=== PATIENT | female | born 1960 | race African-American/Black ===

== ENCOUNTER 2017-07-07 16:52 | Inpatient (IN) ==
[2017-07-07] MEDS ORDERED: ONDANSETRON 4 MG/2 ML VIAL IV STA (19:21)
[2017-07-07] MEDS ORDERED: methylPREDNISolone SOD SUC 125 MG/2 ML VIAL IV STA (19:21)
[2017-07-07] MEDS ORDERED: LEVOFLOXACIN INJ 750 MG in PREMIX 1 EACH IV STA (19:21)
[2017-07-07] MEDS ORDERED: ALBUTEROL/IPRATROPIUM 3 ML NEB RESP TX STA (19:21)
[2017-07-07] MEDS ORDERED: methylPREDNISolone SOD SUC 125 MG/2 ML VIAL ONE (20:12)
[2017-07-07] MEDS ORDERED: LEVOFLOXACIN INJ 150 ML IV ONE (20:12)
[2017-07-07] MEDS ORDERED: ONDANSETRON 4 MG/2 ML VIAL ONE (20:12)
[2017-07-07 21:12] LABS: PT Patient Result 10.2 SECS; Partial Thromboplastin Time 25.7 SECS (0-40)
[2017-07-07] MEDS ORDERED: SUMAtriptan 6 MG/0.5 ML VIAL SUBCUT STA (21:16)
[2017-07-07 21:17] LABS: Hematocrit 36.9 VOL% (35.7-47.0); Mean Corpuscular HGB Conc 32.5 GM/DL (32-36); Mean Corpuscular Hemoglobin 28 PG (27-34); Mean Platelet Volume 11.2 FL (9.6-12.0); Platelet Count 130 T/CUMM (130-400); Red Blood Count 4.24 MC/CUMM (3.8-5.5); Red Cell Distribution Width 13.9 % (9.3-17.3); White Blood Count 6.7 T/CUMM (4-12)
[2017-07-07 21:18] LABS: Basophils % 0.1 % (0.0-0.8); Immature Granulocytes % 1.3 %; Immature Granulocytes Absolute 0.09 #; Lymphocytes # 1.4 10*3/uL (1.4-4.0); Lymphocytes % 21.5 % (21.3-54.2); Monocytes # 0.9 10*3/uL (0.11-0.8); Monocytes % 13.7 % (1.7-12.7); Neutrophils # 4.3 10*3/uL (1.4-7.4); Neutrophils % 63.4 % (38.7-73.9)
[2017-07-07 21:24] LABS: Alanine Aminotransferase 11 U/L (13-56); Albumin 3.2 G/DL (3.4-5.0); Alkaline Phosphatase 85 U/L (45-117); Aspartate Amino Transferase 9 U/L (0-37); Calcium 8.5 MG/DL (8.5-10.1); Total Protein 6.8 G/DL (6.4-8.3)
[2017-07-07 21:25] LABS: Blood Urea Nitrogen 12 MG/DL (7-18); Glucose 392 MG/DL (74-106); Osmolality,Calculated 288.8 MOS/KG (273-304); Potassium 3.7 MMOL/L (3.5-5.1); Sodium 137 MMOL/L (136-145); Troponin I Only < 0.015 NG/ML (0.00-0.045)
[2017-07-07] MEDS ORDERED: SUMAtriptan 6 MG/0.5 ML VIAL SUBCUT ONE (21:52)
[2017-07-08] MEDS ORDERED: ALBUTEROL/IPRATROPIUM 3 ML NEB RESP TX PRN (00:09)
[2017-07-08] MEDS ORDERED: KETOROLAC 15 MG/1 ML VIAL IV PRN (00:15)
[2017-07-08] MEDS ORDERED: ONDANSETRON 4 MG/2 ML VIAL IV PRN (00:15)
[2017-07-08] MEDS ORDERED: GLUCAGON 1 MG VIAL IM PRN (00:17)
[2017-07-08] MEDS ORDERED: DEXTROSE 50% 25 GM/50 ML VIAL IV PRN (00:17)
[2017-07-08] MEDS ORDERED: CEFEPIME 1,000 MG in SODIUM CHLORIDE 0.9% 100 ML IV SCH (00:30)
[2017-07-08] MEDS ORDERED: AZITHROMYCIN INJ 500 MG in SODIUM CHLORIDE 0.9% 250 ML IV SCH (00:30)
[2017-07-08] MEDS ORDERED: cefTRIAXone 1,000 MG in SODIUM CHLORIDE 0.9% 100 ML IV SCH (00:30)
[2017-07-08 01:01] LABS: Apearance,Urine Slightly Hazy (Clear); Bacteria,Urine Occasional /HPF (Few); Bilirubin,Urine Negative (Negative); Blood, Urine Small mg/dL (Negative); Glucose,Urine (UA) >=500 mg/dL (Negative); Ketones,Urine 20 mg/dL (Negative); Mucus,Urine Occasional /LPF (Occasional); Nitrite,Urine Negative (Negative); Protein,Urine Negative; RBC,Urine 3 /HPF (0-4); Squamous Epithelial Cell,Urine Occasional /HPF (0-10); Urine Color Yellow (Yellow); Urine Specific Gravity 1.032 (1.001-1.035); Urine Urobilinogen < 2.0 EU/DL (0.2-1.0); WBC,Urine 26 /HPF (0-6)
[2017-07-08] MEDS ORDERED: SODIUM CHLORIDE 0.9% 1,000 ML IV SCH (01:30)
[2017-07-08] MEDS: ENOXAPARIN 40 MG/0.4 ML SYRINGE SUBCUT SCH (03:24)
[2017-07-08] MEDS: PIPERACILLIN/TAZOBACTAM 3,375 MG in SODIUM CHLORIDE 0.9% 100 ML IV SCH ×3 (04:26→18:08)
[2017-07-08 06:15] LABS: Basophils % 0.1 % (0.0-0.8); Hematocrit 36.3 VOL% (35.7-47.0); Immature Granulocytes % 1.5 %; Immature Granulocytes Absolute 0.11 #; Lymphocytes % 14.4 % (21.3-54.2); Mean Corpuscular HGB Conc 33.1 GM/DL (32-36); Mean Corpuscular Hemoglobin 28 PG (27-34); Mean Corpuscular Volume 85.2 FL (87-102); Mean Platelet Volume 10.4 FL (9.6-12.0); Monocytes # 0.9 10*3/uL (0.11-0.8); Monocytes % 12.4 % (1.7-12.7); Neutrophils # 5.1 10*3/uL (1.4-7.4); Neutrophils % 71.6 % (38.7-73.9); Platelet Count 121 T/CUMM (130-400); Red Blood Count 4.26 MC/CUMM (3.8-5.5); Red Cell Distribution Width 13.9 % (9.3-17.3); White Blood Count 7.2 T/CUMM (4-12)
[2017-07-08 06:55] LABS: Calcium 8.5 MG/DL (8.5-10.1); Osmolality,Calculated 286.5 MOS/KG (273-304); Potassium 3.7 MMOL/L (3.5-5.1); Thyroid Stimulating Hormone 0.494 uIU/ml (0.358-3.74)
[2017-07-08] MEDS ORDERED: INSULIN LISPRO 100 UNIT/ML SUBCUT SCH (07:30)
[2017-07-08] MEDS ORDERED: MAGNESIUM SULF RIDER 2 GM in PREMIX 1 EACH IV ONE (08:13)
[2017-07-08] MEDS: OSELTAMIVIR 75 MG CAPSULE PO SCH ×2 (08:39→22:13)
[2017-07-08] MEDS: HALOPERIDOL 5 MG TABLET PO SCH ×2 (08:39→22:13)
[2017-07-08] MEDS: BENZTROPINE 1 MG TABLET PO SCH ×2 (08:39→22:14)
[2017-07-08] MEDS: DONEPEZIL 5 MG TABLET PO SCH (08:41)
[2017-07-08] MEDS: PANTOPRAZOLE 40 MG VIAL IV SCH (08:41)
[2017-07-08] MEDS ORDERED: NON-FORMULARY MEDICATION (Asenapine Maleate [Saphris] 10 MG) SL SCH (09:00)
[2017-07-08] MEDS ORDERED: ALBUTEROL 2.5 MG/3 ML NEB RESP TX PRN (10:28)
[2017-07-08] MEDS: LEVOFLOXACIN INJ 750 MG in PREMIX 1 EACH IV SCH (10:55)
[2017-07-08] MEDS: ALBUTEROL/IPRATROPIUM 3 ML NEB RESP TX SCH ×2 (13:10→19:18)
[2017-07-08] MEDS ORDERED: ACETAMINOPHEN 325 MG TABLET ONE (18:03)
[2017-07-08] MEDS: ACETAMINOPHEN 325 MG TABLET PO PRN (18:08)
[2017-07-08] MEDS: INSULIN LISPRO 100 UNIT/ML SUBCUT SCH (18:08)
[2017-07-08] MEDS ORDERED: INSULIN GLARGINE 100 UNIT/ML SUBCUT SCH (21:00)
[2017-07-09] MEDS: ALBUTEROL/IPRATROPIUM 3 ML NEB RESP TX SCH ×4 (00:55→22:05)
[2017-07-09] MEDS: PIPERACILLIN/TAZOBACTAM 3,375 MG in SODIUM CHLORIDE 0.9% 100 ML IV SCH ×3 (01:38→18:02)
[2017-07-09] MEDS: INSULIN LISPRO 100 UNIT/ML SUBCUT SCH ×2 (09:29→17:49)
[2017-07-09] MEDS: HALOPERIDOL 5 MG TABLET PO SCH ×2 (09:29→22:04)
[2017-07-09] MEDS: OSELTAMIVIR 75 MG CAPSULE PO SCH ×2 (09:29→22:06)
[2017-07-09] MEDS: DONEPEZIL 5 MG TABLET PO SCH (09:29)
[2017-07-09] MEDS: BENZTROPINE 1 MG TABLET PO SCH ×2 (09:29→22:06)
[2017-07-09] MEDS: PANTOPRAZOLE 40 MG VIAL IV SCH (10:22)
[2017-07-09] MEDS: ENOXAPARIN 40 MG/0.4 ML SYRINGE SUBCUT SCH (10:22)
[2017-07-09] MEDS: LEVOFLOXACIN INJ 750 MG in PREMIX 1 EACH IV SCH (10:23)
[2017-07-09] MEDS ORDERED: INSULIN GLARGINE 100 UNIT/ML SUBCUT SCH (15:25)
[2017-07-09] MEDS: ACETAMINOPHEN 325 MG TABLET PO PRN ×2 (15:55→22:04)
[2017-07-10] MEDS: PIPERACILLIN/TAZOBACTAM 3,375 MG in SODIUM CHLORIDE 0.9% 100 ML IV SCH ×2 (02:11→11:37)
[2017-07-10] MEDS: ALBUTEROL/IPRATROPIUM 3 ML NEB RESP TX SCH ×2 (03:13→06:51)
[2017-07-10] MEDS ORDERED: clonazePAM 0.5 MG TABLET PO SCH (09:30)
[2017-07-10] MEDS ORDERED: sitaGLIPtin 100 MG TABLET PO SCH (09:30)
[2017-07-10] MEDS ORDERED: DIVALPROEX ER 500 MG TABLET PO SCH ×2 (09:30→14:00)
[2017-07-10] MEDS ORDERED: PALIPERIDONE PALMITATE 234 MG IM SCH (09:30)
[2017-07-10] MEDS ORDERED: CETIRIZINE 10 MG TABLET PO SCH (09:30)
[2017-07-10] MEDS ORDERED: DOCUSATE SODIUM 100 MG CAPSULE PO SCH (09:30)
[2017-07-10] MEDS: LEVOFLOXACIN INJ 750 MG in PREMIX 1 EACH IV SCH (09:52)
[2017-07-10] MEDS: INSULIN LISPRO 100 UNIT/ML SUBCUT SCH (09:53)
[2017-07-10] MEDS: ENOXAPARIN 40 MG/0.4 ML SYRINGE SUBCUT SCH (09:53)
[2017-07-10] MEDS: PANTOPRAZOLE 40 MG VIAL IV SCH (09:53)
[2017-07-10] MEDS: BENZTROPINE 1 MG TABLET PO SCH (09:53)
[2017-07-10] MEDS: OSELTAMIVIR 75 MG CAPSULE PO SCH (09:53)
[2017-07-10] MEDS: HALOPERIDOL 5 MG TABLET PO SCH (09:53)
[2017-07-10] MEDS: DONEPEZIL 5 MG TABLET PO SCH (09:53)
[2017-07-10 10:50] VITALS: BP 138/94
[2017-07-10] MEDS ORDERED: INSULIN GLARGINE 100 UNIT/ML SUBCUT SCH (21:00)
== END 2017-07-10 12:00 | disposition home or self-care (01) | DRG 194 ==
LOC: N.ED 16:52 → N.EDINP 07-08 00:07 → SUATTDRO 07-08 00:07 → N.TELEN 07-08 01:21
PROVIDERS: ADMIT Family Medicine; ATTEND Family Medicine